=== PATIENT | male | born 1965 | race Caucasian/White ===

== ENCOUNTER → 2018-09-26 | Outpatient (CLI) | payer MEDICARE, BC ==
[2018-09-26 11:22] LABS: ALKALINE PHOSPHATASE 81 U/L (46-116); ANION GAP 8 mmol/L (7-16); BUN 19 mg/dL (7-18); CHLORIDE 104 mmol/L (98-107); CHOLESTEROL 118 mg/dL (<200); CO2 28 mmol/L (21-32); CREATININE 1.1 mg/dL (0.6-1.3); GLUCOSE 99 mg/dL (70-99); HDL CHOLESTEROL 40 mg/dL (>40); LDL CHOLESTEROL 64 mg/dL (<100); POTASSIUM 4.3 mmol/L (3.5-5.1); SGOT 21 U/L (15-37); SGPT 49 U/L (30-65); SODIUM 140 mmol/L (136-145); TOTAL BILIRUBIN 0.7 mg/dL (<0.1-1.0); TOTAL PROTEIN 7.7 g/dL (6.4-8.2); TRIGLYCERIDE 72 mg/dL (<150); VLDL 14 mg/dL (<40)
[2018-09-26 11:26] LABS: SERUM ASSESSMENT Clear
== END ==
LOC: M.LAB 10:49
PROVIDERS: Internal Medicine
DX: I10 Essential (primary) hypertension (principal); E78.2 Mixed hyperlipidemia; R73.03 Prediabetes; E55.9 Vitamin D deficiency, unspecified